=== PATIENT | male | born 1965 | race Caucasian/White ===

== ENCOUNTER 2017-01-22 17:17 | Emergency (ER) | payer OTHER ==
[~2017-01-22] VITALS: Ht 170.2 cm; Wt 124.5 kg
[2017-01-22 17:36] VITALS: Ht 170.2 cm; Wt 124.5 kg
[2017-01-22] MEDS ORDERED: IBUPROFEN 800 MG TAB PO ONE (20:30)
[2017-01-22 20:53] LABS: ADD SCAN DIFF NO
[2017-01-22 21:03] LABS: BASOPHIL # 0.1 10^3/ul (0.0-0.1); BASOPHILS % 0.7 % (0.0-2.0); EOSINOPHILS # 0.4 10^3/ul (0.0-0.5); EOSINOPHILS % 4.2 % (0.0-7.0); HEMATOCRIT 38.2 % (42.0-52.0); HEMOGLOBIN 12.9 g/dl (14.0-18.0); LYMPHOCYTES # 3.1 10^3/ul (0.8-2.9); LYMPHOCYTES % 36.2 % (15.0-51.0); MEAN CORPUSCULAR HEMOGLOBIN 31.2 pg (29.0-33.0); MEAN CORPUSCULAR HGB CONC 33.8 g/dl (32.0-37.0); MEAN CORPUSCULAR VOLUME 92.5 fl (82.0-101.0); MEAN PLATELET VOLUME 9.5 fl (7.4-10.4); MONOCYTE # 0.7 10^3/ul (0.3-0.9); MONOCYTES % 8.6 % (0.0-11.0); NEUTROPHIL # 4.2 10^3/ul (1.6-7.5); NEUTROPHILS % 49.6 % (39.0-77.0); PLATELET COUNT 209 10^3/UL (140-415); RED BLOOD COUNT 4.13 10^6/ul (4.70-6.10); RED CELL DISTRIBUTION WIDTH 13.5 % (11.5-14.5); WHITE BLOOD COUNT 8.6 10^3/ul (4.8-10.8)
--- NOTE | 2017-01-22 21:07 | ERD ---
ER Documentation Chief Complaint Date/Time DATE: 01/22/17 TIME: 20:59 Chief Complaint right leg pain/swelling/redness x 3 days HPI This is a 51-year-old male presents emergency department for redness and swelling of right lower extremity. Patient first noticed redness and swelling about 1 week ago. Patient denies any fevers or chills. Patient states he had some weeping of clear fluid from right lower extremity. Today, patient states he has some erythema and swelling of left lower leg as well. Denies calf tenderness. No chest pain, shortness of breath, cough or difficulty breathing. No history of diabetes or peripheral artery disease. ROS All systems reviewed and are negative except as per history of present illness. Medications Home Meds Active Scripts Sulfamethoxazole/Trimethoprim* (Bactrim Ds* Tablet) 1 Each Tablet, 1 TAB PO BID for 7 Days, TAB Prov:AMRITA SUMNER NP 01/22/17 Cephalexin* (Cephalexin*) 500 Mg Capsule, 500 MG PO QID for 7 Days, CAP Prov:AMRITA SUMNER NP 01/22/17 Allergies Allergies: Coded Allergies: No Known Allergy (Unverified , 01/22/17) PMhx/Soc History of Surgery: Yes (APPENDEX) Anesthesia Reaction: No Hx Neurological Disorder: No Hx Respiratory Disorders: No Hx Cardiac Disorders: No Hx Psychiatric Problems: No Hx Miscellaneous Medical Probl: No Hx Alcohol Use: No Hx Substance Use: No Hx Tobacco Use: No Smoking Status: Unknown if ever smoked Physical Exam Vitals Vital Signs Date Time Temp Pulse Resp B/P Pulse Ox O2 Delivery O2 Flow Rate FiO2 01/22/17 23:09 99.0 77 20 116/69 98 Room Air 01/22/17 17:36 98.0 92 18 133/92 98 Physical Exam Const: No acute distress, alert Head: Atraumatic Eyes: Normal Conjunctiva ENT: Normal External Ears, Nose and Mouth. Neck: Full range of motion..~ No meningismus. Resp: Clear to auscultation bilaterally. No wheezing, rhonchi or crackles. Cardio: Regular rate and rhythm, no murmurs Abd: Soft, non tender, non distended. Normal bowel sounds Skin: No rash Back: No midline or flank tenderness Ext: Erythema and swelling of bilateral lower extremities. Neur: Awake and alert Psych: Normal Mood and Affect Result Diagram: 01/22/17202101/22/172021 Results 24 hrs Laboratory Tests Test 01/22/17 20:22 White Blood Count 8.610^3/ul Red Blood Count 4.1310^6/ul Hemoglobin 12.9g/dl Hematocrit 38.2% Mean Corpuscular Volume 92.5fl Mean Corpuscular Hemoglobin 31.2pg Mean Corpuscular Hemoglobin Concent 33.8g/dl Red Cell Distribution Width 13.5% Platelet Count 79245^3/UL Mean Platelet Volume 9.5fl Neutrophils % 49.6% Lymphocytes % 36.2% Monocytes % 8.6% Eosinophils % 4.2% Basophils % 0.7% Nucleated Red Blood Cells % 0.0/100WBC Neutrophils # 4.210^3/ul Lymphocytes # 3.110^3/ul Monocytes # 0.710^3/ul Eosinophils # 0.410^3/ul Basophils # 0.110^3/ul Nucleated Red Blood Cells # 0.010^3/ul Sodium Level 139mmol/L Potassium Level 3.7mmol/L Chloride Level 102mmol/L Carbon Dioxide Level 27mmol/L Anion Gap 14 Blood Urea Nitrogen 13mg/dl Creatinine 1.01mg/dl Glucose Level 153mg/dl Calcium Level 8.6mg/dl Current Medications Medications (Trade) Dose Ordered Sig/Darryn Route PRN Reason Start Time Stop Time Status Last Admin Dose Admin Ibuprofen (Motrin) 800 mg ONCE ONCE PO 01/22/17 20:30 01/22/17 20:31 DC 01/22/17 20:30 Trimethoprim/ Sulfamethoxazole (Bactrim (Ds)) 1 tab ONCE ONCE PO 01/22/17 23:00 01/22/17 23:01 DC 01/22/17 22:52 Cephalexin (Keflex) 500 mg ONCE ONCE PO 01/22/17 23:00 01/22/17 23:01 DC 01/22/17 22:52 Procedures/MDM ED COURSE: The patient was stable throughout ED course. I kept the patient and/or family informed of laboratory and diagnostic imaging results throughout the ED course. Laboratory CBC no significant anemia or infection BMP no significant electrolyte imbalance. Imaging [facility] venous ultrasound lower extremities Patient: ASA ALMONTE : 1965 Age: 51 Sex: M MR #: [id number] DOS: 01/22/172013 Ordering MD: AMRITA SUMNER NP Location: [facility] Room/Bed: PROCEDURE: US DVT. CLINICAL INDICATION: Bilateral lower extremity swelling and redness. TECHNIQUE: Multiple longitudinal and transverse images of the bilateral lower extremity veins were obtained with espinal scale and color Doppler imaging. 2D grayscale measurements with compression, color Doppler flow, and augmentation was performed. The calf veins were interrogated as well. COMPARISON: No prior studies are available for comparison. FINDINGS: The bilateral common femoral, femoral and popliteal veins are normally compressible throughout. Color flow demonstrates normal filling of the vessels. Normal waveforms are visualized and there is normal response to augmentation. The calf veins are visualized and are equally unremarkable. IMPRESSION: 1. No DVT in either lower extremity. MDM: 51-year-old male presents to the emergency department for right lower leg erythema and swelling 1 week. Patient given dose of ibuprofen while in the ED. Labs drawn per medical staff assistant. Labs show no significant electrolyte imbalance, anemia or infection. Venous ultrasound of bilateral lower extremities reviewed by radiologist as no DVT in either lower extremity. Low suspicion for DVT. Patient's physical exam reveals generalized erythema to bilateral lower extremities. No area of fluctuance. No purulent drainage. Low suspicion for abscess. No fever and no elevated WBC. Low suspicion for osteomyelitis. Patient given dose of Keflex and Bactrim DS while in the ED. Low suspicion for osteomyelitis, DVT or abscess. Patient's likely has cellulitis. Patient is appropriate for outpatient management and will be discharged with prescription for Keflex and Bactrim. Instructed patient to return to ED in 2 days for reassessment. Return to ED sooner for any new or worsening symptoms. Patent verbalizes understanding. All questions answered at discharge. Departure Diagnosis: Primary Impression: Cellulitis Site of cellulitis: extremity Site of cellulitis of extremity: lower extremity Laterality: right Qualified Code: L03.115 - Cellulitis of right lower extremity Condition: Stable AMRITA SUMNER NP Jan 22, 2017 21:07
--- NOTE | 2017-01-22 22:05 | RADRPT ---
PROCEDURE: US DVT. CLINICAL INDICATION: Bilateral lower extremity swelling and redness. TECHNIQUE: Multiple longitudinal and transverse images of the bilateral lower extremity veins were obtained with espinal scale and color Doppler imaging. 2D grayscale measurements with compression, co maya Doppler flow, and augmentation was performed. The calf veins were interrogated as well. COMPARISON: No prior studies are available for comparison. FINDINGS: The bilateral common femoral, femoral and popliteal veins are normally compressible throughout. Col or flow demonstrates normal filling of the vessels. Normal waveforms are visualized and there is no rmal response to augmentation. The calf veins are visualized and are equally unremarkable. IMPRESSION: 1. No DVT in either lower extremity. RPTAT: HTAR .Curtis Fox MD, MD Date Time Electronically viewed and signed by .Curtis Fox MD, MD on 01/22/2017 22:04 .R/
[2017-01-22 22:16] LABS: POTASSIUM 3.7 mmol/L (3.5-5.1)
[2017-01-22 22:19] LABS: CREATININE 1.01 mg/dl (0.61-1.24)
[2017-01-22 22:20] LABS: CALCIUM 8.6 mg/dl (8.4-10.2)
[2017-01-22] MEDS ORDERED: CEPH500C PO (22:45)
[2017-01-22] MEDS ORDERED: SULF1TAB31 PO (22:45)
[2017-01-22] MEDS ORDERED: CEPHALEXIN 500 MG CAP PO ONE (23:00)
[2017-01-22] MEDS ORDERED: TRIMETHOPRIM/SULFAMETHOX (DS) TAB PO ONE (23:00)
[2017-01-22 23:09] VITALS: BP 116/69; PULSE 77; RESP 20; TEMP 99
== END 2017-01-22 23:05 | disposition home or self-care (01) ==
LOC: FTE 17:17
DX: L03.115 Cellulitis of right lower limb (principal)
CPT/HCPCS: 80048; 85025; 93970; Z7502; Z7610